=== PATIENT | male | born 1980 | race Caucasian/White ===

== ENCOUNTER 2024-06-18 15:48 | Emergency (ER) | payer OTHER, SELFPAY ==
[2024-06-18 15:51] VITALS: BP 150/100
[2024-06-18 16:13] LABS: % Basophils 0.4 % (0-2); % Eosinophils 0.9 % (0-6); % Immature Granulocytes 0.2 % (0-0.5); % Monocytes 10.1 % (1.7-9.3); % Neutrophils 59.4 % (42.2-75.2); Absolute Eosinophils 0.1 10^3/uL (0-0.7); Absolute Lymphocytes 1.6 10^3/uL (1.2-3.4); Absolute Monocytes 0.5 10^3/uL (0.1-0.6); Absolute Neutrophils 3.2 10^3/uL (1.4-6.5); Hematocrit 37.3 % (39.0-52.0); Hemoglobin 12.3 g/dL (13.0-18.0); Mean Corpuscular Hgb 26.2 pg (27.0-31.0); Mean Corpuscular Volume 79.4 fL (80.0-94.0); Mean Platelet Volume 8.7 fL (7.4-10.4); Nucleated Red Blood Cells % 0 % (-); Platelet Count 256 10^3/uL (130-400); Red Cell Dist. Width 14.6 % (11.5-14.5); White Blood Cell Count 5.4 10^3/uL (4.8-10.8)
[2024-06-18 16:26] LABS: ALT (SGPT) 24 U/L (0-50); AST (SGOT) 29 U/L (17-59); Alkaline Phosphatase 43 U/L (38-126); Blood Urea Nitrogen 17 mg/dl (9-20); Calcium 9.6 mg/dl (8.4-10.2); Carbon Dioxide 25 mmol/L (22-30); Chloride 102 mmol/L (98-107); Glucose 92 mg/dl (70-99); Potassium 4.5 mmol/L (3.5-5.1); Sodium 138 mmol/L (135-145); Total Bilirubin 0.7 mg/dl (0.2-1.3); Total Protein 7.6 g/dl (6.3-8.2); eGFR > 60.00
[2024-06-18 16:37] LABS: Troponin I < 0.012 ng/ml
[2024-06-18 19:00] VITALS: BP 154/83
[2024-06-18 19:13] LABS: TSH Reflex To Free T4 2.21 uIU/ml (0.47-4.68)
--- NOTE | 2024-06-19 00:03 | ED.GENMED ---
History of Present Illness
General
Chief Complaint: Heart Rate Problem
Source: patient
Exam Limitations: none
Time Seen by Provider: 06/18/24 17:56
Nursing documentation reviewed up to this point in time: agreed with
History of Present Illness
History of Present Illness:
Patient to ED with compplaint of intermittent fluttering in chest. No complaints of cp/pressure, SOB. Currently asymptomatic. States he had an episode at work today. He was evaluated by nurse at work and told his HR was irreg. Advised to come to
ED. Brought self to ED for eval.
Past History
Past History
ED Past Medical History: None
ED Past Surgical History: None
Review of Systems
Review of Systems
Allergies reviewed?: Yes
All Other Systems: ROS reviewed and negative except as documented in HPI and ROS
Constitutional: Reports no symptoms
EENT: Reports no symptoms
Respiratory: Reports no symptoms
Cardiac: Reports palpitations
ABD/GI: Reports no symptoms
: Reports no symptoms
Musculoskeletal: Reports no symptoms
Skin: Reports no symptoms
Neurological: Reports no symptoms
Psychiatric: Reports no symptoms
Phy Exam
General Physical Exam
General Presentation: well appearing and no apparent distress
General age: appears stated age
General Skin: warm and dry
General Habitus: normal
General Mental: alert
Cardiovascular Exam
Cardiovascular Exam: regular rate/rhythm and no edema
Pulmonary Exam
Pulmonary Exam: lungs clear and no respiratory distress
Musculoskeletal Exam
Musculoskeletal Exam: full ROM and neuro vasc intact
Skin Exam
Skin Exam: normal color, warm/dry and no rash
Psychiatric Exam
Psychiatric Exam: normal mood/affect
Course
Orders/Labs/Results
Orders:
Orders
06/18/24 15:51
Electrocardiogram (*1) Urgent
Reason for Study: Palpitations
EKG- Treatment ONCE
06/18/24 16:04
Complete Blood Count/With Diff Urgent
Comprehensive Metabolic Panel Urgent
TSH Reflex To Free T4 Urgent
Comment: ADD ON
Troponin I Urgent
06/18/24 17:58
Add On- LAB Urgent
Tests Added?: TSH reflex free T4
Abnormal Lab Results
06/18/24
16:04
Hgb 12.3 L g/dL
(13.0-18.0)
Hct 37.3 L %
(39.0-52.0)
MCV 79.4 L fL
(80.0-94.0)
MCH 26.2 L pg
(27.0-31.0)
RDW 14.6 H %
(11.5-14.5)
Monocytes % 10.1 H %
(1.7-9.3)
06/18/24 16:04
06/18/24 16:04
Vital Signs
Initial and Last Documented VS:
Initial Vital Signs
Temp Pulse Resp BP Pulse Ox
98.5 F 76 18 150/100 98
06/18/24 15:51 06/18/24 15:51 06/18/24 15:51 06/18/24 15:51 06/18/24 15:51
Last Documented Vital Signs
Temp Pulse Resp BP Pulse Ox
98.5 F 84 22 154/83 99
06/18/24 15:51 06/18/24 19:30 06/18/24 19:30 06/18/24 19:00 06/18/24 19:15
MDM/Problems Addressed
Differential Diagnosis Includes:
Patient to ED with complaint of intermittent fluttering in chest. No associated symptoms. He has remained asymptomatic while in ED> HR=NSR. Discussed lab, exam results with him. No concerning findings, no findings to explain his symptoms. Will
discharge home and he will follow closely with PCP. recommend holter monitoring. DDX to include but not limited to arrythmia, GERD, hypo/hyperthyroid, electrolyte imbalance
*Critical Care Note
Total Time (30-74mins, 75-104mins- exclusive of procedures): Not Applicable
ED Attending Note
-
Portions of this chart may have been created with voice recognition software.� Occasional wrong word or��sound alike� substitutions may have occurred due to the inherent limitations of voice recognition software.
Discharge Plan
Departure
Patient Disposition: Home (Routine Discharge)
Date of Disposition: 06/18/24
Time of Disposition: 19:28
Patient with high blood pressure during this ER visit?: No
Condition: Good
Covid-19: Not Applicable
Discharge Problem:
Palpitations
Instructions: Palpitations (DC)
Referrals:
Nicole Guardado MD [Family Provider] - Tomorrow
Activity Restrictions/Additional Instructions:
Follow up with your family doctor to discuss holter monitoring.
Interventions
Interventions:
*Risk Screen - Suicide Last Done: 06/18/24 15:51
*General Assessment Last Done: 06/18/24 15:51
*Neglect/Abuse Screening Last Done: 06/18/24 15:51
ED- Fall Risk Assessment Last Done: 06/18/24 19:35
*ED COVID-19 Vaccine History Last Done: 06/18/24 15:51
*Nursing Disposition Last Done: 06/18/24 19:35
ED- Cardiac Assessment Last Done: 06/18/24 18:40
ED- Pulmonary Assessment Last Done: 06/18/24 18:40
Discharge Date and Time
Discharge Date/Time: 06/18/24 19:35
Print Language: WOLOF
== END 2024-06-18 19:35 | disposition home or self-care (01) ==
LOC: EMR 15:48
PROVIDERS: EMERGENCY PHYSICIAN Emergency Medicine; FAMILY PHYSICIAN Family Medicine
DX: R00.2 Palpitations (principal)
CPT/HCPCS: 99284; 80053; 84443; 84484; 85025; 93005

== ENCOUNTER 2025-07-01 14:22 | Emergency (ER) | payer OTHER, SELFPAY ==
[2025-07-01 14:38] VITALS: BP 157/105
[2025-07-01 16:05] LABS: Hematocrit 43.6 % (39.0-52.0); Hemoglobin 14.6 g/dL (13.0-18.0); Mean Corp Hgb Conc. 33.5 g/dL (33.0-37.0); Mean Corpuscular Volume 85.2 fL (80.0-94.0); Nucleated Red Blood Cells % 0 % (-); Platelet Count 224 10^3/uL (130-400); Red Cell Dist. Width 14.6 % (11.5-14.5)
--- NOTE | 2025-07-01 16:13 | ED.GENMED ---
History of Present Illness
General
Chief Complaint: Heart Rate Problem
Source: patient
Exam Limitations: none
Time Seen by Provider: 07/01/25 15:24
Nursing documentation reviewed up to this point in time: agreed with
History of Present Illness
History of Present Illness:
Patient is a 44-year-old male with history hypertension who presents to the emergency department for evaluation of palpitations X 4-5 days. He describes intermittent fluttering in his chest throughout the past 5 days without any clear exertional
component. He actually seems to notice the symptoms more at rest. Patient was seen by his primary care provider yesterday where an EKG revealed some 'electrical abnormality'. It was recommended that he follow-up with a router operator outpatient.
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 He also reports noticing more palpitations throughout the day today.
Given the ongoing palpitations as well as episode of lightheadedness and chest pain he came to the emergency department for further evaluation.
He denies any shortness of breath. He denies any chest pain at present. He denies any fever or cough. No lower leg swelling or edema.
Patient states he did have an episode of palpitations approximately 1 year ago however this resolved without intervention and has never seen a router operator.
Past History
Past History
ED Past Medical History: None
ED Past Surgical History: None
Review of Systems
Review of Systems
Allergies reviewed?: Yes
All Other Systems: ROS reviewed and negative except as documented in HPI and ROS
Phy Exam
Physical Exam
Physical Exam:
Vitals: Hypertensive, otherwise vital signs stable
General: Patient is well appearing, no acute distress
Skin: Warm and dry, no rashes or lesions
Head: Normocephalic, atraumatic
Eyes: Sclera nonicteric.
Throat: Protecting airway
Neck: Normal ROM, no cervical spine tenderness, no meningismus
Cardiac: Regular rate and rhythm, no murmurs. 2+ palpable radial pulses bilaterally. No reproducible chest wall tenderness
Pulm: Normal respiratory effort, no wheezes, rales, rhonchi heard on exam
Extremities: No evidence of cyanosis or edema
Neuro: AAOx3. Grossly intact
Psychiatric: Normal affect.
Course
Orders/Labs/Results
Orders:
Orders
07/01/25 14:23
EKG [Electrocardiogram (*1)] Urgent
Reason for Study: Palpitations
EKG- Treatment ONCE
07/01/25 15:58
Complete Blood Count/With Diff Urgent
Comprehensive Metabolic Panel Urgent
Magnesium Urgent
Comment: ADD ON
TSH Reflex To Free T4 Urgent
Comment: ADD ON
Troponin I Urgent
07/01/25 16:11
Add On- LAB Urgent
Tests Added?: magnesium, TSH w/ reflex to T4
07/01/25 16:12
Orthostatic VS- Treatment ONCE
07/01/25 18:52
Troponin I Urgent
07/01/25 19:00
Electrocardiogram (*1) Urgent
Reason for Study: Chest Pain
EKG- Treatment ONCE
Abnormal Lab Results
07/01/25
15:58
RDW 14.6 H %
(11.5-14.5)
Absolute Monos (auto) 0.7 H 10^3/uL
(0.1-0.6)
Monocytes % 9.9 H %
(1.7-9.3)
Sodium 134 L mmol/L
(135-145)
07/01/25 15:58
07/01/25 15:58
Vital Signs
Initial and Last Documented VS:
Initial Vital Signs
Temp Pulse Resp BP Pulse Ox
98.5 F 93 16 157/105 98
07/01/25 14:38 07/01/25 14:38 07/01/25 14:38 07/01/25 14:38 07/01/25 14:38
Last Documented Vital Signs
Temp Pulse Resp BP Pulse Ox
98.5 F 89 16 146/85 98
07/01/25 14:38 07/01/25 20:07 07/01/25 20:07 07/01/25 20:07 07/01/25 20:07
MDM/Problems Addressed
Differential Diagnosis Includes:
Not limited to: Acute dehydration, electrolyte abnormality, cardiac arrhythmia, hyperthyroidism, orthostatic hypotension, doubt acute coronary syndrome, etc.
MDM/Problems Addressed:
44-year-old male with 5 days of intermittent palpitations with episode of chest tightness/lightheadedness while today at work. There was no associated shortness of breath or syncopal event. He was seen by primary care who recommended outpatient
cardiology follow-up. He is asymptomatic by arrival to ED. On arrival, patient is hypertensive with otherwise stable vital signs. Physical exam as above.
Differential diagnosis as above. Possible dehydration/orthostatic hypotension, electrolyte abnormality, hyperthyroidism. Possible underlying arrhythmia. Symptoms do not seem exertional in nature�less suspicious for acute coronary syndrome.
ED plan: Basic labs, TSH, serial troponins. Will give IV fluids and reassess
EKG obtained in triage shows normal sinus rhythm without acute ischemic changes or evidence of arrhythmia. Basic labs were sent without any electrolyte abnormalities or other clinically significant findings. TSH normal. Serial troponins negative.
He was given a liter of IV fluids and remains asymptomatic here. His orthostatic vital signs are normal.
Unfortunately, patient did not have any palpitations while on cardiac monitoring here in emergency department. However, his workup has been unremarkable and have a very low suspicion for acute cardiac/pulmonary emergency at this time. However, do
feel that patient should follow-up with cardiology outpatient for further evaluation and possible Holter monitor.
Advised patient to stay well-hydrated. Discussed strict return precautions. Patient comfortable with plan.
Chronic conditions affecting care:
Hypertension
Acute Exacerbation and/or Progression of Chronic Illness:
Acutely hypertensive
*Pulse Oximetry
SaO2: 98
Oxygen Mode of Delivery: Room air
Patient hypoxic: no
*EKG
Interpreted by ED Provider?: Yes
EKG Intrepretation Date: 07/01/25
Interpretation: normal
Comparison EKG: changes noted
Heart Rate: 84
Rate: normal
Rhythm: sinus
[place]: normal axis
Interval: normal QT interval
QRS Pattern: normal QRS
Ischemia: non-specific ST changes
*Grain Blender Interpretation
Rate: normal
Interpretation: normal
Heart Rate: 82
Rhythm: sinus
*Critical Care Note
Total Time (30-74mins, 75-104mins- exclusive of procedures): Not Applicable
ED Attending Note
-
Portions of this chart may have been created with voice recognition software.� Occasional wrong word or��sound alike� substitutions may have occurred due to the inherent limitations of voice recognition software.
Discharge Plan
Departure
Patient Disposition: Home (Routine Discharge)
Date of Disposition: 07/01/25
Time of Disposition: 19:53
Patient with high blood pressure during this ER visit?: Yes
Condition: Good
Discharge Problem:
Palpitations, Lightheadedness
Instructions: Palpitations (DC), BLOOD PRESSURE
Referrals:
Ortega Barnes MD [Active, Cardiology]
Nicole Guardado MD [Family Provider]
Activity Restrictions/Additional Instructions:
RETURN TO THE EMERGENCY DEPARTMENT WITH ANY CHEST PAIN, SHORTNESS OF BREATH, PERSISTENT LIGHTHEADEDNESS/DIZZINESS, PALPITATIONS WORSE WITH EXERTION, EXERTIONAL FATIGUE, SEVERE BACK PAIN, WORSENING IN CURRENT SYMPTOMS, OR ANY OTHER CONCERNS
- As discussed your lab work in the emergency department showed no acute abnormalities. Your cardiac enzymes were negative.
- There was no witnessed episodes of cardiac arrhythmias while you are in the emergency department today. You were given IV fluids.
- It is important that you stay well-hydrated. Continue to take it as prescribed.
- Please follow-up with cardiology for further evaluation/management. You may require a Holter monitor
Monitor your symptoms closely and return to the emergency department with any acute worsening/new symptoms or any other concerns
Interventions
Interventions:
*Risk Screen - Suicide Last Done: 07/01/25 14:38
*General Assessment Last Done: 07/01/25 19:37
*Neglect/Abuse Screening Last Done: 07/01/25 14:38
*ED- Fall Risk Assessment Last Done: 07/01/25 19:37
*ED COVID-19 Vaccine History Last Done: 07/01/25 16:49
*ED Influenza Vaccine History Last Done: 07/01/25 16:49
*Nursing Disposition Last Done: 07/01/25 20:07
ED- Cardiac Assessment Last Done: 07/01/25 16:05
ED- Pulmonary Assessment Last Done: 07/01/25 16:05
Discharge Date and Time
Discharge Date/Time: 07/01/25 20:09
Print Language: SAMI
[2025-07-01 16:17] LABS: ALT (SGPT) 36 U/L (0-50); AST (SGOT) 26 U/L (17-59); Albumin 4.9 g/dl (3.5-5.0); Alkaline Phosphatase 55 U/L (38-126); Blood Urea Nitrogen 14 mg/dl (9-20); Calcium 9.6 mg/dl (8.4-10.2); Carbon Dioxide 30 mmol/L (22-30); Chloride 100 mmol/L (98-107); Glucose 96 mg/dl (70-99); Potassium 4.7 mmol/L (3.5-5.1); Sodium 134 mmol/L (135-145); Total Protein 8.1 g/dl (6.3-8.2); eGFR > 60.00
[2025-07-01 16:29] LABS: Troponin I 0.013 ng/ml
[2025-07-01 16:32] VITALS: BP 148/93; BP 151/102; BP 156/109; PULSE 78; PULSE 82; PULSE 83
[2025-07-01 16:52] LABS: Magnesium 2.2 mg/dl (1.6-2.3)
[2025-07-01 19:30] LABS: Troponin I 0.016 ng/ml
[2025-07-01 20:07] VITALS: BP 146/85
== END 2025-07-01 20:09 | disposition home or self-care (01) ==
LOC: EMR 14:22
PROVIDERS: Physician Assistant; EMERGENCY PHYSICIAN Emergency Medicine; FAMILY PHYSICIAN Family Medicine
DX: R00.2 Palpitations (principal); R42 Dizziness and giddiness; I10 Essential (primary) hypertension
CPT/HCPCS: 99284; 80053; 83735; 84443; 84484; 85025; 93005